=== PATIENT | female | born 1985 | race Caucasian/White ===

== ENCOUNTER 2019-12-10 22:11 | Emergency (ER) | payer OTHER, BC ==
[~2019-12-10] VITALS: Ht 162.5 cm; Wt 87.9 kg
--- OUTSIDE RECORDS SUMMARY | 2019-12-10 22:29 | XMS REPORT ---
Author Author Mita PEGUERO Organization [facility] Address [address] [address] Care Team Providers Care Emergency Veterinary Technician Name Role Phone LUCIA PEGUERO Unavailable PROBLEMS Unknown Problems ALLERGIES No Information ENCOUNTERS Encounter Location Date Diagnosis [place] [address] [id number] Mar, [facility] [address] [id number] Jan, [place] [address] [phone] Jan, [address] [phone] Aug, IMMUNIZATIONS No Known Immunizations SOCIAL HISTORY Never Assessed REASON FOR VISIT "Pt presents w pain on the upper left side." PLAN OF CARE VITAL SIGNS MEDICATIONS Medication Instructions Dosage Frequency Start Date End Date Duration S tatus Clindamycin HCl 150 MG Orally every 8 hrs 3 capsules 8h Jan, 201 9 10 days Active RESULTS No Results PROCEDURES Procedure Date Ordered Result Body Site UNSPEC PERIODONTAL PROCEDURE REPORT Feb 02, 2019 INSTRUCTIONS MEDICATIONS ADMINISTERED No Known Medications
--- OUTSIDE RECORDS SUMMARY | 2019-12-10 22:29 | XMS REPORT | Continuity of Care Document ---
Author Organization Unknown Address Unknown Phone Unavailable Allergies Active Description Code Type Severity Reaction Onset Reported/Identified Relationship to Patient Clinical Status Yes No Known Drug Allergies [id number] N/A N/A Yes sulfamethoxazole [id number] Drug Allergy Unknown Hives 01/22/2018 Yes trimethoprim [id number] Drug Allergy Unknown Hives 01/22/2018 Yes sulfamethoxazole [id number] Drug Allergy Unknown N/A 12/10/2019 Yes trimethoprim [id number] Drug Allergy Unknown N/A 12/10/2019 Medications There is no data. Problems Date Dx Coded Attending Type Code Diagnosis Diagnosed By 01/15/2018 Other G89.11 G89.11 - Acute pain due to trauma 01/21/2019 PHILIP TRIVEDI M545 Low back pain 07/09/2019 BENY SOLIS R05 Cough 07/09/2019 BENY SOLIS R51 Headache 07/09/2019 BENY SOLIS R53.83 Other fatigue 08/26/2019 ARVIN TRUJILLO L72. 8 Other follicular cysts of the skin and subcutaneous tissue 08/26/2019 ARVIN TRUJILLO M79. 89 Other specified soft tissue disorders 08/26/2019 ARVIN TRUJILLO Z80. 3 Family history of malignant neoplasm of breast 10/06/2019 ARVIN TRUJILLO Z32. 00 Encounter for test, result unknown 10/27/2019 ARVIN TRUJILLO R53. 83 Other fatigue 10/27/2019 ARVIN TRUJILLO Z13. 1 Encounter for screening for diabetes mellitus 11/01/2019 SHAMAR GUERRERO 304. 40 Amphetamine and other psychostimulant dependence, unspecified use 11/01/2019 SHAMAR GUERRERO 309. 89 Other Specified Trauma- and Stressor-Related Disorder Procedures There is no data. Results Test Result Range CBCD - 10/27/19 14:46 WBC Count 8.1 4.6 - 10.8 RBC Count 4.67 4.04 - 5.48 Hemoglobin 13.4 12.0 - 16.0 Hematocrit-Blood 42.2 37.7 - 47.9 MCV 90 80 - 97 MCH 28.7 27.0 - 31.2 MCHC 31.8 31.8 - 35.4 RDW 14.0 11.6 - 14.8 Platelet Count 287 142 - 424 Neutrophils % 66 37 - 70 Lymphocytes % 25 18 - 44 Monocytes % 5 4 - 11 Eosinophils % 2 0 - 7 Basophils % 1 0 - 3 Neutrophils [count] 5.37 NRG Lymphocytes [count] 2.05 NRG Monocytes [count] 0.42 NRG Eosinophils [count] 0.18 NRG Basophils [count] 0.04 NRG Age at Specimen Collection 34 a NRG TSH - 10/27/19 14:46 TSH 1.68 0.40 - 4.20 Age at Specimen Collection 34 a NRG HGB A1C - 10/27/19 14:46 HGB A1C 5.5 6.0 - 9.0 Age at Specimen Collection 34 a NRG Encounters ACCT No. Visit Date/Time Discharge Status Pt. Type Provider Facility Loc./Unit Complaint [id number] 01/21/2019 10:39:00 01/21/2019 23:59: 59 CLS Outpatient PHILIP TRIVEDI [id number] 09/09/2018 15:00:00 09/09/2018 23:59:5 9 CLS Outpatient [facility] [id number] 01/15/2018 13:03:00 Document Registration [id number] 12/10/2019 22:13:[address] Emergency RHONDA BEST, ZOEY [facility] ER R ANKLE PAIN [id number] 09/13/2019 12:39:12 09/13/2019 23:59:5 9 CLS Outpatient JAIME MCBRIDE [id number] 10/27/2019 14:41:00 10/27/2019 19: 41:00 DIS Outpatient ARVIN TRUJILLO [facility] OT [id number] 10/06/2019 09:29:00 10/06/2019 14: 29:00 DIS Outpatient ARVIN TRUJILLO [facility] OT [id number] 08/26/2019 14:23:00 08/26/2019 19: 23:00 DIS Outpatient ARVIN TRUJILLO [facility] OT [id number] 07/09/2019 16:26:00 07/09/2019 21: 26:00 DIS Outpatient [place] [facility] [place] [id number] 11/01/2019 00:00:00 DIS Unknown SHAMAR GUERRERO
--- OUTSIDE RECORDS SUMMARY | 2019-12-10 22:29 | XMS REPORT ---
Author Author Mita PEGUERO Organization [facility] Address [address] [address] Care Team Providers Care Basketball Player Name Role Phone LUCIA PEGUERO Unavailable PROBLEMS Unknown Problems ALLERGIES No Known Allergies ENCOUNTERS Encounter Location Date Diagnosis [facility] [address] [phone] Mar, [facility] [address] [phone] Jan, [place] [address] [id number] Aug, IMMUNIZATIONS No Known Immunizations SOCIAL HISTORY Never Assessed REASON FOR VISIT pt presents for EXT #14 PLAN OF CARE VITAL SIGNS MEDICATIONS Unknown Medications RESULTS No Results PROCEDURES Procedure Date Ordered Result Body Site EXTRACT-ERUPTED TOOTH OR EXPOSED ROOT Jan 27, 2019 INSTRUCTIONS MEDICATIONS ADMINISTERED No Known Medications
--- OUTSIDE RECORDS SUMMARY | 2019-12-10 22:29 | XMS REPORT ---
Author Author Mita PEGUERO Organization [facility] Address [address] [address] Care Team Providers Care Organic Chemistry Teacher Name Role Phone LUCIA PEGUERO Unavailable PROBLEMS Unknown Problems ALLERGIES No Information ENCOUNTERS Encounter Location Date Diagnosis [facility] [address] [place] [address] A 2019 [facility] [address] [id number] Jan, [facility] [address] [id number] Jan, [facility] [address] [phone] Aug, IMMUNIZATIONS No Known Immunizations SOCIAL HISTORY Never Assessed REASON FOR VISIT write-off PLAN OF CARE VITAL SIGNS MEDICATIONS Unknown Medications RESULTS No Results PROCEDURES No Known procedures INSTRUCTIONS MEDICATIONS ADMINISTERED No Known Medications
--- OUTSIDE RECORDS SUMMARY | 2019-12-10 22:29 | XMS REPORT ---
Author Author Mita PEGUERO Organization [facility] Address [address] [address] Care Team Providers Care Trim Carpenter Name Role Phone LUCIA PEGUERO Unavailable PROBLEMS Unknown Problems ALLERGIES No Information ENCOUNTERS Encounter Location Date Diagnosis [facility] [address] [phone] Aug, IMMUNIZATIONS No Known Immunizations SOCIAL HISTORY Never Assessed REASON FOR VISIT pt presents for NPE. pt states her top left molar is craked PLAN OF CARE VITAL SIGNS MEDICATIONS Unknown Medications RESULTS No Results PROCEDURES Procedure Date Ordered Result Body Site PANORAMIC FILM September 09, 2018 INTRAORAL-COMPLETE (INCL. BITEWINGS) September 09, 2018 COMPREHENSIVE ORAL EVALUATION September 09, 2018 INSTRUCTIONS MEDICATIONS ADMINISTERED No Known Medications
[2019-12-10] MEDS ORDERED: HYDROcodone/APAP 5 MG/325 MG (LORTAB) TAB PO ONE (22:30)
--- NOTE | 2019-12-10 23:23 | ED Lower Extremity ---
General Chief Complaint: Lower Extremity Stated Complaint: R ANKLE PAIN Nursing Triage Note: PT TO FT1 WITH COMPLAINT OF RIGHT ANKLE PAIN AFTER FALLING DOWN CAMPER STEPS. Nursing Sepsis Screen: No Definite Risk Source: patient Exam Limitations: no limitations History of Present Illness Date Seen by Provider: Dec 10, 2019 Time Seen by Provider: 22:15 Initial Comments This 34-year-old woman presents to the emergency room with right foot and ankle pain after missing a step coming down off of a camper. She cannot clearly describe the mechanism of injury. She has not been able to bear weight and her carried her to the car and into the ER. The incident happened just prior to arrival. Allergies and Home Medications Allergies Coded Allergies: sulfamethoxazole (Verified Allergy, Unknown, 12/10/19) trimethoprim (Verified Allergy, Unknown, 12/10/19) Patient Home Medication List Home Medication List Reviewed: Yes Review of Systems Constitutional: no symptoms reported EENTM: no symptoms reported Respiratory: no symptoms reported Cardiovascular: no symptoms reported Gastrointestinal: no symptoms reported Genitourinary: no symptoms reported : No Musculoskeletal: see HPI Skin: no symptoms reported Psychiatric/Neurological: No Symptoms Reported Past Mcnzkel-Ntruqo-Cmduxb Hx Past Med/Social Hx: Reviewed Nursing Past Med/Soc Hx Patient Social History Alcohol Use: Denies Use Recreational Drug Use: No Smoking Status: Current Everyday Smoker Type Used: Electronic/Vapor Recent Foreign Travel: No Contact w/Someone Who Travel: No Recent Infectious Disease Expo: No Recent Hopitalizations: No Immunizations Up To Date Tetanus Booster (TDap): Unknown Seasonal Allergies Seasonal Allergies: No Past Medical History Surgeries: Yes Appendectomy, Tubal Ligation Respiratory: No Cardiac: No 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 oz. kg; 33.00 BMI Method: General Appearance: WD/WN, mild distress HEENT: normal ENT inspection Cardiovascular: regular rate, rhythm, no edema, no murmur Respiratory: lungs clear, normal breath sounds, no respiratory distress Knees: right knee non-tender, right knee normal inspection, right knee normal range of motion, right knee no evidence of injury Ankles: right ankle other (mild swelling and tenderness around the lateral malleolus) Feet: right foot other (pain, tenderness, and swelling around the anterior lateral aspect of the proximal foot. Pain with range of motion. 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, no motor/sensory deficits, alert, normal mood/affect, oriented x 3 Skin: normal color, warm/dry Progress/Results/Core Measures Results/Orders My Orders Orders - ZOEY ELLIS MD Foot, Right, 3 View (12/10/19 22:21) Ankle, Right, 3 Views (12/10/19 22:21) Hydrocodone/Apap 5/325 Tablet (Lortab 5 (12/10/19 22:30) Medications Given in ED Vital Signs/I&O 12/10/19 12/10/19 22:17 23:33 Temp 36.5 36.5 Pulse 80 76 Resp 20 18 B/P (MAP) 105/65 (78) 115/68 (78) Pulse Ox 100 100 O2 Delivery Room Air Room Air Blood Pressure Mean: 78 Progress Progress Note : Progress Note No evidence of fracture on x-ray imaging. Patient was given hydrocodone for pain. She was put in a boot for support and given crutches. She may have both ankle and foot sprain. Patient was advised to stay nonweightbearing and wear the boot until she gets the official x-ray report read by radiologist. Diagnostic Imaging Diagonstic Imaging: Xray Plain Films/CT/US/NM/MRI: other (foot and ankle) Comments X-rays of the foot and ankle viewed by me. Report not yet available. No acute abnormality appreciated. Departure Impression Primary Impression: Right foot sprain Qualified Codes: S93.601A - Unspecified sprain of right foot, initial encounter Additional Impression: Right ankle sprain Qualified Codes: S93.401A - Sprain of unspecified ligament of right ankle, initial encounter Disposition: HOME, SELF-CARE Condition: Improved Departure-Patient Inst. Decision time for Depature: 23:21 Referrals: NO,LOCAL PHYSICIAN (PCP/Family) Primary Care Physician Patient Instructions: Ankle Sprain, Foot Sprain (DC) Add. Discharge Instructions: Contact the emergency room after 10:00 tomorrow to obtain the official reading on your x-rays. Until then avoid weightbearing and use the boot and crutches. If no fractures are found, you may gradually increase weightbearing and level of activity as pain allows. Wear a supportive Velcro or lace up ankle brace for at least 6 weeks whenever active to support an ankle sprain while it heals. You may take ibuprofen up to 600 mg every 6 hours as needed and/or Tylenol (acetaminophen) (up to 1000 mg every 6 hours as needed for treatment of pain. Elevation, compressive wrapping, and icing in 20 minute intervals should help with pain and swelling. Contact your doctor or the ER if you have any further questions or concerns. Return to care if you have worsening symptoms despite following these measures. All discharge instructions reviewed with patient and/or family. Voiced understanding. ZOEY ELLIS MD Dec 10, 2019 23:22
[2019-12-10 23:33] VITALS: BP 115/68
--- NOTE | 2019-12-11 08:22 | Diagnostic Imaging Report ---
EXAMINATION: 3 views of the right foot INDICATION: Foot pain. FINDINGS: Alignment of the foot appears within normal limits. There is no evidence of cortical disruption to suggest an acute fracture. There is no suspicious bone lesion. There is no soft tissue foreign body. IMPRESSION: 1. Normal alignment of the right foot. No findings of malalignment, fracture or dislocation demonstrated. There is no foreign body. Dictated by: Dictated on workstation # [id number]
--- NOTE | 2019-12-11 08:23 | Diagnostic Imaging Report ---
INDICATION: Right ankle pain. FINDINGS: Distal tibia and fibula unremarkable. There is no cortical disruption. There is no widening of the ankle mortise. The talar dome is normal in morphology. Soft tissues unremarkable. IMPRESSION: No acute process evident at the right ankle. Dictated by: Dictated on workstation # [id number]
== END 2019-12-10 23:35 | disposition home or self-care (01) ==
LOC: ER 22:13
DX: S93.601A Unspecified sprain of right foot, initial encounter (principal); S93.401A Sprain of unspecified ligament of right ankle, initial encounter; F17.290 Nicotine dependence, other tobacco product, uncomplicated; Z88.2 Allergy status to sulfonamides; Z88.1 Allergy status to other antibiotic agents; W10.8XXA Fall (on) (from) other stairs and steps, initial encounter
CPT/HCPCS: 73610; 73630

== ENCOUNTER 2021-05-21 05:35 | Outpatient (CLI) | payer BC, MEDICAID ==
[~2021-05-21] VITALS: Ht 162 cm; Wt 74.8 kg
[2021-05-22] MEDS ORDERED: BUPR200T34 PO (14:29)
[2021-05-22] MEDS ORDERED: LEVO1TBD PO (14:29)
[2021-05-22] MEDS ORDERED: FLUO40CA12 PO (14:29)
== END 2021-06-27 14:42 | disposition home or self-care (01) ==
LOC: PREOP 05:35
PROVIDERS: ATTEND Obstetrics & Gynecology
DX: Z01.818 Encounter for other preprocedural examination (principal)

== ENCOUNTER 2021-06-25 05:51 | Outpatient (CLI) | payer MEDICAID ==
[~2021-06-25 05:51] MED LIST: BUPR200T34 PO; FLUO40CA12 PO; LEVO1TBD PO
== END 2021-06-27 14:41 | disposition home or self-care (01) ==
LOC: PREOP 05:51
PROVIDERS: ATTEND Obstetrics & Gynecology
DX: Z01.818 Encounter for other preprocedural examination (principal)

== ENCOUNTER 2021-07-02 06:59 | Day surgery (SDC) | payer MEDICAID ==
[2021-07-02] VITALS (12 sets, daily range): BP systolic 81–109; BP diastolic 42–63
[~2021-07-02] VITALS: Ht 162 cm; Wt 74.8 kg
[2021-07-02] MEDS ORDERED: ceFAZolin 2 GM IV Premixed 50 ML IV ONE (07:15)
[2021-07-02] MEDS ORDERED: metroNIDAZOLE 500MG/100ML IVPB 100 ML IV ONE (07:15)
[2021-07-02] MEDS: LACTATED RINGERS 1,000 ML IV PRN ×3 (07:59→09:16)
[2021-07-02 08:00] LABS: BASOPHILS % (AUTO) 0 % (0-10); EOSINOPHILS # (AUTO) 0.1 10^3/uL (0.0-0.3); EOSINOPHILS % (AUTO) 1 % (0-10); HEMATOCRIT 42 % (35-52); HEMOGLOBIN 13.9 g/dL (11.5-16.0); LYMPHOCYTES # (AUTO) 1.8 10^3/uL (1.0-4.0); LYMPHOCYTES % (AUTO) 24 % (12-44); MEAN CORPUSCULAR HEMOGLOBIN 29 pg (25-34); MEAN CORPUSCULAR HGB CONC 33 g/dL (32-36); MEAN CORPUSCULAR VOLUME 89 fL (80-99); MEAN PLATELET VOLUME 11.8 fL (9.0-12.2); MONOCYTES # (AUTO) 0.5 10^3/uL (0.0-1.0); MONOCYTES % (AUTO) 6 % (0-12); NEUTROPHILS # (AUTO) 5.1 10^3/uL (1.8-7.8); NEUTROPHILS % (AUTO) 68 % (42-75); PLATELET COUNT 291 10^3/uL (130-400); WHITE BLOOD COUNT 7.5 10^3/uL (4.3-11.0)
[2021-07-02] MEDS ORDERED: morphine INJ 10 MG/ML 1ML (SYR OR VIAL) IVP ONE (10:15)
[2021-07-02] MEDS ORDERED: ONDANSETRON 4 MG/2 ML (SDV) Z0FRAN IVP PRN (10:15)
--- NOTE | 2021-07-02 12:07 | Discharge Inst-Women's Service ---
Discharge Inst-Women's Serv Depart Medication/Instructions New, Converted or Re-Newed RX: Transmitted to Pharmacy Problems Reviewed?: Yes Consults/Follow Up Additional Follow Up: Yes Orders/Referrals Dr. Thompson in 7-10 days and in 8 weeks Activity Activity: Activity as Tolerated Driving Instructions: No Driving for 1 Week NO SMOKING: NO SMOKING Nothing Inside Vagina: No Douching, No [place], No Tampons Diet Discharge Diet: No Restrictions Symptoms to Report to : Bleeding Excessive, Pain Increased, Fever Over 101 Degrees F, Vaginal Bleeding Increase, Questions/Concerns For Any Problems or Questions: Contact Your Physician Skin/Wound Care Infection Signs and Symptoms: Increased Redness, Foul Odor of Wound, Increased Drainage, Skin Itchy or Has a Rash, Increased Swelling, Temperature Above 101 F Operative Area Clean and Dry: Keep Incision Clean/Dry Stitches/Leora/Dermabond: Dermabond, Care of Stitches Bathing Instructions: YONIS Brock DO Jul 02, 2021 12:07 pm
[2021-07-02] MEDS ORDERED: SMT80CT PO (12:08)
[2021-07-02] MEDS ORDERED: IBUP-1773 PO (12:08)
[2021-07-02] MEDS ORDERED: HYDR-34 PO (12:08)
[2021-07-02] MEDS ORDERED: DOCU100C37 PO (12:08)
[2021-07-02] MEDS ORDERED: HYDROmorphone 2 MG/ML VIAL (DILAUDID) IV PRN (12:15)
[2021-07-02] MEDS ORDERED: LACTATED RINGERS 1,000 ML IV SCH (12:15)
[2021-07-02] MEDS ORDERED: ONDANSETRON 4 MG/2 ML (SDV) Z0FRAN IV PRN (12:15)
[2021-07-02] MEDS ORDERED: KETOROLAC 30 MG/ML VIAL IVP PRN (12:15)
[2021-07-02] MEDS ORDERED: CHLORASEPTIC LOZENGE MM PRN (12:15)
[2021-07-02] MEDS ORDERED: DOCUSATE SODIUM 100 MG (COLACE) CAP PO PRN (12:15)
[2021-07-02] MEDS ORDERED: ANTACID SUSP 30 ML UDC (MYLANTA) PO PRN (12:15)
[2021-07-02] MEDS ORDERED: NALOXONE 0.4 MG/ML 1 ML (NARCAN) VIAL IV PRN (12:15)
[2021-07-02] MEDS ORDERED: ZOLPIDEM 5 MG (AMBIEN) TAB PO PRN (12:15)
[2021-07-02] MEDS ORDERED: SIMETHICONE 80 MG (MYLICON) CHEW PO PRN (12:15)
[2021-07-02] MEDS: HYDROcodone/APAP 7.5 MG/325 MG (LORTAB, LORCET PLUS) TABLET PO PRN ×2 (13:23→14:15)
--- NOTE | 2021-07-02 16:33 | OPERATIVE REPORT ---
DATE OF SERVICE: PREOPERATIVE DIAGNOSES: 1. A 36-year-old female with abnormal uterine bleeding. 2. Chronic pelvic pain. 3. Fibroid uterus. 4. Dysmenorrhea. POSTOPERATIVE DIAGNOSES: 1. A 36-year-old female with abnormal uterine bleeding. 2. Chronic pelvic pain. 3. Fibroid uterus. 4. Dysmenorrhea. PROCEDURE: Robotic-assisted total laparoscopic hysterectomy with bilateral salpingectomy. SURGEON: Remy Sanchez DO RAISIN SEPARATOR OPERATOR: Glenny Cornejo DNP, was necessary for manipulation and retraction throughout the procedure. ANESTHESIA: General endotracheal. ESTIMATED BLOOD LOSS: Minimal. URINE OUTPUT: 50 mL clear at the end of the procedure. FLUIDS: 1500 mL lactated Ringer's solution. FINDINGS: A grossly normal appearing external female genitalia. Uterus that appears grossly normal with some serosal projections consistent with a history of fibroid uterus. Tubal ligation noted bilaterally. Grossly normal appearing bilateral ovaries. SPECIMEN SENT: Uterus, bilateral fallopian tubes. INDICATIONS FOR PROCEDURE: This is a 36-year-old female is a patient who had sought care in my office, had tried more conservative measures for management of abnormal bleeding and chronic pelvic pain. However, due to this being an ongoing issue, this is her final attempt to have this dealt with. She wished for more definitive measures. We discussed with the patient in detail hysterectomy including its risks, alternatives. We discussed recovery timeframe, hospital stay, risk from anesthesia, possible need for blood transfusion, possible need for reoperation, damaging surrounding structures during the procedure. All of these concerns and risks were addressed and after all of her questions were answered, she was agreeable to proceed. Consent was obtained in the preoperative area, the patient was taken to the operating room. OPERATIVE REPORT IN DETAIL: Once in the operating room, general anesthesia was found to be adequate, placed in dorsal lithotomy position, prepped and draped in normal sterile fashion where a timeout was performed. A Marie catheter was placed using sterile technique. A weighted speculum inserted to the patient's vagina. Right angle retractor was utilized. Cervix was grasped 12 o'clock position using a long Allis clamp and 0 Vicryl suture was then placed in the anterior lip of the cervix, which was using my retraction point at that point. I then gently sound the uterine cavity, depth was found to be 8 cm. I selected an 8 cm Karen uterine manipulator tip and a 3.5 cm colpotomy ring. I advanced the manipulator tip into the uterus deploying the balloon and advanced the vaginal ring around the vaginal fornix, which offers excellent bimanual manipulation. I then removed all the other instruments from the patient's vagina, performed change of gloves obtained my attention to the abdomen, where subcostally approximately 1 fingerbreadth in the midclavicular line on the left side. I introduced the Veress needle through the skin into the peritoneum until intraperitoneal placement was confirmed using saline drop test. I then proceeded insufflated using CO2 gas and opening pressure 4 mmHg was noted, proceeded to max pressure of 15 mmHg, at which point I made 8 mm infraumbilical incision with a knife and directed a da Octavio camera trocar through this incision, intraperitoneal placement was confirmed using the da Octavio laparoscope. Once this trocar was in place, I am able to confirm intraperitoneal placement There was no evidence of damage from entry site and there was no evidence of damage upon the Veress entry site and the Veress was removed under direct visualization of the laparoscope. A brief scan of the upper abdominal anatomy appears to be grossly normal. I then had the patient placed in steep Trendelenburg and made visualize all my pelvic anatomy as defined in my findings above. I placed two lateral trocars, both 8 cm lateral to my infraumbilical trocar. These were both 8 mm incisions. Trocars were placed under direct visualization of laparoscope. Once both of these trocars were in place, I bring in the da Octavio robot and docked in appropriate fashion placing the SynchroSeal device in left hand and monopolar charley in the right hand. I performed the following dissection bilaterally. I sealed and transected the uteroovarian ligament using the SynchroSeal device. I then created a window in the mesosalpinx and took this laterally down the mesosalpinx amputating the fallopian tube from its surrounding blood supply. I then sealed and transected the round ligament using the SynchroSeal device. I then am able to grasp the entire broad ligament and sealed and transected down to the level of the lower uterine segment using the SynchroSeal device at which point I the anterior and posterior leaflets of the broad ligament. Anterior leaflet was taken around to the anterior vaginal fornix and posterior leaflets was taken around to the posterior vaginal fornix. This allows me to skeletonize the uterine vessels laterally and sealed and transected using the SynchroSeal device. I am able to do so while noting lateral displacement of the ureter and keeping it away from my dissection plane. I then created a colpotomy at 12 o'clock position using monopolar charley and took this circumferentially around the vaginal fornix amputating the cervix away from the vagina. The entire specimen was then removed through the vagina. I then closed the lateral vaginal apices of the vaginal cuff using 2-0 Vicryl suture in a [id number]-[id number] fashion colposuspending the uterosacral ligaments. I then closed the remainder of the vaginal cuff using 2-0 V-Loc in a running fashion, after which there was no active bleeding noted from any of my dissection planes. I then undocked the da Octavio robot and proceeded with remainder of the case laparoscopically. I copiously irrigated the pelvis using normal saline. Once again, this active bleeding noted from any of my dissection planes. I placed Surgiflo hemostatic agent over all my planes of dissection. I had the patient taken out of steep Trendelenburg where I removed the lateral trocars under direct visualization of the laparoscope and infraumbilical trocars left in place to release insufflation and to introduce 10 mL of 0.25% Marcaine into the peritoneal cavity for postoperative pain management. I then removed this trocar as well. I then closed the skin using 4-0 Monocryl in interrupted subcuticular stitches. Dermabond was applied to the incisions and Band-Aids were placed over the incisions as well. Marie catheter was left in place. The patient tolerated the procedure well and sent to recovery area in stable condition. Lap and sponge counts were correct at the end of procedure. Instrument counts correct as well. Two grams of Ancef, 500 mg of Flagyl were given preoperatively for infection prophylaxis. Job ID: [id number] DocumentID: [id number] Dictated Date: 07/02/2021 11:25:08 Camp Dining Room Attendant Date: 07/02/2021 16:32:33 Dictated By: REMY SANCHEZ DO
--- NOTE | 2021-07-03 09:38 | Anesthesia-General Post-Op ---
General Patient Condition Mental Status/LOC: Same as Preop Cardiovascular: Satisfactory Nausea/Vomiting: Absent Respiratory: Satisfactory Pain: Controlled Complications: Absent Post Op Complications Complications None Follow Up Care/Instructions Patient Instructions None needed. Anesthesia/Patient Condition Patient Condition Patient was doing well, no complaints, stable vital signs, no apparent adverse anesthesia problems. No complications reported per nursing, thus discharged to home 07/02/21 MONIE LEIVA CRNA Jul 03, 2021 09:38
== END 2021-07-02 17:50 | disposition home or self-care (01) ==
LOC: SDC 06:59 → WS 11:30 → SDC 17:50
PROVIDERS: ATTEND Obstetrics & Gynecology
DX: D25.2 Subserosal leiomyoma of uterus (principal); D25.1 Intramural leiomyoma of uterus; N80.0 Endometriosis of uterus; N73.6 Female pelvic peritoneal adhesions (postinfective); N94.6 Dysmenorrhea, unspecified; N83.8 Other noninflammatory disorders of ovary, fallopian tube and broad ligament; G89.29 Other chronic pain; R10.2 Pelvic and perineal pain; Z98.51 Tubal ligation status; Z87.891 Personal history of nicotine dependence; Z80.49 Family history of malignant neoplasm of other genital organs
CPT/HCPCS: 36415; 84703; 85025; 86850; 86900; 86901; 87081; 88307